=== PATIENT | female | born 1960 | race Caucasian/White ===

== ENCOUNTER 2016-07-04 09:57 | Inpatient (IN) | payer MEDICAID ==
[~2016-07-04] VITALS: Ht 160 cm; Wt 86.6 kg
[2016-07-04] MEDS ORDERED: LEVOFLOXACIN 500 MG INJ IV ONE (15:44)
[2016-07-04] MEDS ORDERED: SODIUM CHLORIDE 0.9% 1,000 ML ONE (15:44)
[2016-07-04] MEDS ORDERED: MORPHINE 2 MG/ML SYR IV PRN (17:20)
[2016-07-04] MEDS ORDERED: GLUCAGON 1 MG VIAL IM PRN (17:20)
[2016-07-04] MEDS ORDERED: SALINE FLUSH 10 ML FLUSH PRN (17:20)
[2016-07-04] MEDS ORDERED: DEXTROSE 50% SYRINGE 50 ML IV PRN (17:20)
[2016-07-04] MEDS ORDERED: ACETAMINOPHEN 325 MG TAB PO PRN (17:20)
[2016-07-04] MEDS ORDERED: MORPHINE 4 MG/ML SYR IV PRN (17:20)
[2016-07-04] MEDS: METRONIDAZOLE 500MG/100ML 100 ML IV SCH (17:52)
[2016-07-04 18:12] VITALS: BP_SYST 129; RESP 22; TEMP 97.9
[2016-07-04] MEDS: ONDANSETRON 4 MG VIAL IV PRN (18:32)
[2016-07-04 19:43] VITALS: Ht 160 cm; Wt 86.6 kg
[2016-07-04 20:12] VITALS: RESP 20
[2016-07-04] MEDS: SALINE FLUSH 10 ML FLUSH SCH (20:35)
[2016-07-04] MEDS ORDERED: LEVEMIR INSULIN SUBQ SCH (21:00)
[2016-07-04 23:14] VITALS: BP_SYST 120; RESP 18; TEMP 99.2
[2016-07-05] MEDS: METRONIDAZOLE 500MG/100ML 100 ML IV SCH ×3 (01:12→16:15)
[2016-07-05] MEDS: SODIUM CHLORIDE 0.9% 1,000 ML IV SCH ×2 (01:14→16:15)
[2016-07-05 02:43] VITALS: BP_SYST 119; RESP 16; TEMP 98.7
[2016-07-05] MEDS: SODIUM CHLORIDE 0.9% FLUSH BAG 500 ML IV SCH ×2 (06:00)
[2016-07-05] MEDS ORDERED: OPTIRAY 350 100 ML VIAL HMH IV ONE (07:00)
[2016-07-05 07:23] VITALS: BP_SYST 118; RESP 18; TEMP 98.5
[2016-07-05] MEDS: SALINE FLUSH 10 ML FLUSH SCH ×2 (09:29→20:00)
[2016-07-05] MEDS: LEVOFLOXACIN 750 MG/150 ML 150 ML IV SCH (09:29)
[2016-07-05] MEDS: EXEMESTANE 25 MG TAB PO SCH (09:30)
[2016-07-05 11:40] VITALS: BP_SYST 147; RESP 20; TEMP 98.6
[2016-07-05] MEDS: ONDANSETRON 4 MG VIAL IV PRN (11:51)
[2016-07-05] MEDS ORDERED: METOPROLOL XL 50 MG TAB PO ONE (12:35)
[2016-07-05] MEDS ORDERED: DEXTROSE 50% SYRINGE 50 ML IV PRN (12:35)
[2016-07-05] MEDS ORDERED: GLUCAGON 1 MG VIAL IM PRN (12:35)
[2016-07-05] MEDS: SACCHA BOULARDII 250MG CAP PO SCH ×2 (14:02→21:34)
[2016-07-05] MEDS: CATHFLO 2 MG VIAL IV ONE ×2 (14:05→15:06)
[2016-07-05 14:54] VITALS: BP_SYST 137; RESP 22; TEMP 99
[2016-07-05 20:06] VITALS: BP_SYST 118; RESP 18; TEMP 99.6
[2016-07-05 20:10] VITALS: BP_SYST 133
[2016-07-05] MEDS ORDERED: LEVEMIR INSULIN SUBQ SCH (21:00)
[2016-07-06 00:03] VITALS: BP_SYST 123; RESP 18; TEMP 98.8
[2016-07-06] MEDS: METRONIDAZOLE 500MG/100ML 100 ML IV SCH ×2 (01:05→08:33)
[2016-07-06] MEDS: SODIUM CHLORIDE 0.9% 1,000 ML IV SCH ×2 (01:05→08:33)
[2016-07-06 03:07] VITALS: BP_SYST 126; RESP 16; TEMP 98.2
[2016-07-06] MEDS: SODIUM CHLORIDE 0.9% FLUSH BAG 500 ML IV SCH ×2 (06:00)
[2016-07-06 07:31] VITALS: BP_SYST 125; RESP 16; TEMP 98.3
[2016-07-06] MEDS: SALINE FLUSH 10 ML FLUSH SCH (08:00)
[2016-07-06] MEDS: SACCHA BOULARDII 250MG CAP PO SCH (08:33)
[2016-07-06] MEDS: EXEMESTANE 25 MG TAB PO SCH (08:33)
[2016-07-06] MEDS: LEVOFLOXACIN 750 MG/150 ML 150 ML IV SCH (09:34)
[2016-07-06 11:08] VITALS: BP_SYST 145; RESP 16; TEMP 98
[2016-07-06 12:08] VITALS: BP_SYST 145; RESP 16; TEMP 98
== END 2016-07-06 13:00 | disposition home or self-care (01) | DRG 392 ==
LOC: ENRESERVTM → ENRESERVDT → ER 09:57 → EMR 15:42 → ENPENDDIS 15:42 → 5THE 17:57
PROVIDERS: ADMIT Internal Medicine; ATTEND Internal Medicine
CPT/HCPCS: 74177; 94799; 96374; 99222